=== PATIENT | male | born 1985 | race Caucasian/White ===

== ENCOUNTER 2023-12-13 07:31 | Day surgery (SDC) | payer SELFPAY ==
[2023-12-13 07:39] VITALS: BP 146/93; PULSE 78; RESP 14; TEMP 36.7; O2SAT 98
--- NOTE | 2023-12-13 07:47 | W.ED.GENAD ---
Discharge Plan Disposition Patient Disposition: Admit to [facility] Discharge Details Clinical Impression: Immunization, tetanus-diphtheria, Laceration of forearm, left, complicated Attending Provider: Tre Ansari Primary Care Provider: Steff,[facility] ED Provider: Maxwell Guzman Discharge Data Discharge Date/Time-TO BE ENTERED AT DEPARTURE: 12/13/23 18:50 HPI General Date/Time Provider Initiated Documentation: 12/13/23 07:47. HPI Narrative: MDM This is a previously healthy normothermic and not tachycardic [id number] 38-year-old male with nondominant left forearm with exposed muscle and tendon neurovascularly intact and no concerns for traumatic arthropathy so I do not feel that the patient requires CT scan. No pain or proportion to suggest necrotizing soft tissue infection. Will update tetanus status and consult orthopedics given exposed tendon and muscle belly. Will provide 2 g cefazolin, ketorolac and acetaminophen. Patient had some tea earlier this morning but has otherwise been n.p.o. since midnight. 8:03 AM I spoke with Dr. Ansari from the orthopedic team who graciously agreed to take the patient to the operating room for washout and primary closure. Chronic conditions affecting the care of the patient: N/A History obtained from an outside historian: N/A External record review: N/A Medications: Ketorolac cefazolin acetaminophen Social determinants of health affecting disposition: N/A Management discussed with: Orthopedics Treatment/interventions considered: CT left upper extremity but deferred Response to therapies provided: N/A HPI This is a [id number] 38-year-old male arrived to the emergency department via private vehicle in the setting of a left forearm laceration he sustained just prior to arrival. Patient was reportedly working with a [place] saw. The saw inadvertently fell off the table and he sustained 2 lacerations to his left forearm with a soft. His lacerations were initially bleeding but stopped prior to his arrival. He is not anticoagulated. He is not having any limitations of motion in his left hand. He denies any other injuries. Exam General: Well-appearing in no acute distress speaking in complete sentences. Head: Normocephalic, atraumatic. Eye: Extraocular eye movements intact. No conjunctival injection. No scleral icterus. Ear, nose, mouth, throat: Grossly normal inspection. Normal voice, handling secretions normally. Neck: Trachea midline. Cardiovascular: Well-perfused distal extremities. Respiratory: Nonlabored respiration. Gastrointestinal: Nondistended abdomen. Musculoskeletal: On the patient's left forearm there are 2 gaping approximately 15 cm lacerations. The lacerations are hemostatic. The inferior laceration has exposed muscle with tendon. Patient has good range of motion in his left elbow. He is able to fully pronate and supinate. He is neurovascularly intact in his left upper extremity at the hand. He has a 2+ left radial pulse. Cap refill less than 2 seconds in the left fingertips. Sensation motor function intact in left hand across the radial, median, and ulnar nerve distributions. Skin: Normal for age and race, grossly normal temperature and turgor. No acute rash. Neurologic: Alert and appropriate, no apparent acute deficits. Related Data Home Medications Medication Instructions Recorded Confirmed acetaminophen 500 mg tablet 500 mg PO Q6H PRN PRN pain #40 tabs 12/13/23 cephalexin 500 mg capsule 500 mg PO TID #6 caps 12/13/23 hydrocodone 5 mg-acetaminophen 325 1 tab PO Q6H PRN pain #5 tabs 12/13/23 mg tablet ibuprofen 600 mg tablet 600 mg PO TID PRN pain #90 tabs 12/13/23 Previous Rx's Medication Instructions Recorded acetaminophen 500 mg tablet 500 mg PO Q6H PRN PRN pain #40 tabs 12/13/23 cephalexin 500 mg capsule 500 mg PO TID #6 caps 12/13/23 hydrocodone 5 mg-acetaminophen 325 1 tab PO Q6H PRN pain #5 tabs 12/13/23 mg tablet ibuprofen 600 mg tablet 600 mg PO TID PRN pain #90 tabs 12/13/23 Allergies Allergy/AdvReac Type Severity Reaction Status Date / Time No Known Allergies Allergy Unverified 12/13/23 08:44 General Stated Complaint: Laceration KENNETH: 3 Course Vital Signs Vital signs: Vital Signs Temperature 36.7 C 12/13/23 07:39 Pulse 78 12/13/23 07:39 Respiratory Rate 14 12/13/23 07:39 Blood Pressure 146/93 H 12/13/23 07:39 Pulse Oximetry 98 12/13/23 07:39 Temperature 36.7 C 12/13/23 07:39 Temperature Source Oral 12/13/23 07:39 Pulse 78 12/13/23 07:39 Respiratory Rate 14 12/13/23 07:39 Blood Pressure 146/93 H 12/13/23 07:39 Blood Pressure Position Sitting 12/13/23 07:39 Pulse Oximetry 98 12/13/23 07:39 Oxygen Delivery Method Room Air 12/13/23 07:39 Oxygen Flow Rate 0 12/13/23 07:39 Medical Decision Making Quality:SDOH Health Related Social Needs: No Data to Display PFSH All Active Problems Laceration of forearm, left, complicated (Acute) Immunization, tetanus-diphtheria (Acute) Social History Smoking/Tobacco Use Status: Current every day Tobacco Type: cigarettes Smoking risk assessment performed?: Yes Alcohol Intake: current Alcohol Intake frequency: holidays/special occasions only Drug use: Never Substance use type: does not use Housing: house Do you feel safe at home: Yes Do you feel safe in your relationship?: Yes
--- NOTE | 2023-12-13 08:07 | W.ORTHOCONSU ---
Date of service: 12/13/23 Time of Service: 08:07 History of Present Illness Narrative: Gabirel is a 38-year-old male who was working with a chop saw this morning. The stand which the tops always on was somewhat unstable and the soft fell on the him. He deflected the cell with his left forearm suffering 2 lacerations. I was called by Dr. Guzman for an evaluation given the deep and complex nature of these lacerations. Gabriel reports pain with wrist motion but no limitations with motion. He denies numbness or tingling. He is right-hand dominant. He denies any previous issues with his left arm. He denies any significant medical issues. Consults Consult date: 12/13/23 Requesting physician: Maxwell Guzman Consult Reason Left Forearm laceration Assessment and Plan Assessment and plan (1) Laceration of forearm, left, complicated: Status: Acute Assessment and plan: Gabriel is a 38-year-old male who suffered an injury by chops on the left forearm. This is a complex and deep laceration involving muscle and fascia. Given the size of the lacerations, both over 10 cm, and the involvement of muscle and fascia, I recommend proceeding with operative irrigation and debridement with closure. It does not seem to involve any vital structures. The location of the lacerations would involve some muscle but there is no significant tendon in this region and his examination is benign for this. I would recommend proceeding with irrigation debridement, I would not close the fascia. I would inspect the wound more closely under anesthesia and then closed primarily. He would be able to go home afterwards. Review of Systems All systems reviewed & are unremarkable except as noted in HPI and below PFSH All Active Problems Laceration of forearm, left, complicated (Acute) Immunization, tetanus-diphtheria (Acute) Social History Smoking/Tobacco Use Status: Current every day Tobacco Type: cigarettes Smoking risk assessment performed?: Yes Alcohol Intake: current Alcohol Intake frequency: holidays/special occasions only Drug use: Never Substance use type: does not use Housing: house Do you feel safe at home: Yes Do you feel safe in your relationship?: Yes Exam Const General: cooperative, healthy appearing, comfortable and no acute distress Nutritional Appearance: average body habitus Orientation: alert, awake and oriented x3 Resp Auscultation: clear to auscultation bilaterally Cardio Rate: regular rate Rhythm: regular rhythm Extrem Other: Evaluation of the left arm shows 2 oblique lacerations. The more ventral laceration is obliquely oriented within the skin. The skin edge does seem slightly blackened and undermined. This laceration appears to go down to fascia but does not violate the fascia. It is roughly directly over the mobile wad. The more distal laceration is deeper involves muscle fascia. This appears to be the muscle belly of extensor carpi radialis longus and brevis. Potentially there could be some involvement of EDC. He is able to demonstrate active wrist extension and active extension of all 5 digits. This causes pain. He reports sensation intact to light touch over the dorsum of the wrist and hand and is well as the median and ulnar nerve. There is no gross debris in the wound. There is no bone involvement. Results Last Vital Signs Temp 36.7 C 12/13/23 07:39 Pulse 78 12/13/23 07:39 Resp 14 12/13/23 07:39 BP 146/93 H 12/13/23 07:39 Pulse Ox 98 12/13/23 07:39
[2023-12-13] MEDS: ceFAZolin 2 GM/50 ML BAG IVPB (08:23)
[2023-12-13] MEDS: ACETAMINOPHEN 1,000 MG/100 ML BTL 400 MG IVPB (08:23)
[2023-12-13] MEDS: Ketorolac 15 MG/ML VIAL IVP (08:24)
[2023-12-13] MEDS: Normal Saline 500 ML IV (08:25)
--- NOTE | 2023-12-13 10:02 | W.ANESPRE ---
General Info Date of Service Date Performed: 12/13/23 Height: 5 ft 7 in Weight: 90.718 kg Body Mass Index (BMI): 31.3 Surgical Procedure: Operation Date: 12/13/23 08:30 Proposed Procedure Side Surgeon p Laceration Repair Right Tre Ansari MD Actual Procedure Side Surgeon p Forearm Laceration Repair Left Tre Ansari MD Pre-Op Diagnosis Post-Op Diagnosis LEFT FOREARM LACERATION Meds Allergies and Home Medications Allergies Allergy/AdvReac Type Severity Reaction Status Date / Time No Known Allergies Allergy Unverified 12/13/23 08:44 Home Medication Medication Instructions Recorded Unknown [No Known Home Meds] 12/13/23 [facility] Active Problems Active Problems: Problem Status Onset Code Laceration of forearm, left, complicated S51.812A Immunization, tetanus-diphtheria Z23 Tobacco Smoking/Tobacco Use Status: Current every day Tobacco Type: cigarettes Alcohol Alcohol Intake: current Alcohol intake frequency: holidays/special occasions only Substance Use Substance use: Never Substance use type: does not use Vital Signs and Lab Results Vital Signs Most Recent Vital Signs in EMR: Most Recent Vital Signs Temp Pulse Resp BP Pulse Ox 36.7 C 78 14 146/93 H 98 12/13/23 07:39 12/13/23 07:39 12/13/23 07:39 12/13/23 07:39 12/13/23 07:39 Lab Results Blood Type / Crossmatch: No Data to Display Complete Blood Count: No Data to Display Complete Metabolic Panel: No Data to Display Liver Function Panel: No Data to Display Coagulation Panel: No Data to Display Cardiac Panel: No Data to Display Arterial Blood Gas: No Data to Display Venous Blood Gas: No Data to Display Pancreas Panel: No Data to Display Thyroid Panel: No Data to Display Infectious Disease: No Data to Display Blood Cultures: No Data to Display Toxicology Panel: No Data to Display Anesthesia Assessment and Plan Anesthesia History Personal History: No History of Anesthesia Complications Family History: No Family History of Anesthesia Complications Exercise Tolerance Exercise Tolerance: Metabolic Equivalents>4 Pertinent Negatives Pertinent Negatives: No Symptoms of GERD, No Major Cardiovascular Symptoms or Complaints and No Major Pulmonary Symptoms or Complaints Cardiac & Pulmonary Exam Cardiac Exam: Normal S1/S2 Heart Sounds Pulmonary Exam: Clear Bilateral Breath Sounds Implantable Cardiac Device Does patient have a Pacemaker or an ICD?: No Airway Exam Known Difficult Airway: No Mallampati Class: 4 Mouth Opening: Narrow (< 3cm) Thyromental Distance: Greater than 3 cm Facial Hair: Full Urena Neck Range of Motion: Full ROM Neck Circumference: Thick Teeth Condition: Generalized Poor Dentition ASA Classification ASA Score: ASA 2 Emergency Case?: Yes NPO Status NPO Status: NPO Clears >2 hours, Solids >8 hours Anesthesia Plan Resuscitation Status: Full Code Anesthesia Technique: General Anesthesia Airway Planned: Natural Airway Monitors Used: Standard Monitors
[2023-12-13 10:04] VITALS: BMI 31.3
--- NOTE | 2023-12-13 10:12 | W.PM.DS.N ---
Date of service: 12/13/23 Time of Service: 11:26 DS: Diagnosis Discharge Diagnosis (1) Laceration of forearm, left, complicated: Status: Acute Discharge Plan Disposition Patient Disposition: Home Discharge Details Reason For Visit: Arm laceration/saw Attending Provider: Tre Ansari Primary Care Provider: ,[facility] Meds and New Rx's Prescriptions: New hydrocodone-acetaminophen 5-325 mg tablet 1 tab PO Q6H PRN (Reason: pain) Qty: 5 0RF acetaminophen 500 mg tablet 500 mg PO Q6H PRN PRN (Reason: pain) Qty: 40 3RF ibuprofen 600 mg tablet 600 mg PO TID PRN (Reason: pain) Qty: 90 3RF Discharge Instructions Additional Instructions: Discharge Instructions Activity: You should keep the hand elevated as much as possible for the first few days. You may perform light activities with the splint in place, focusing mostly on movement of the fingers. After 3 days when the splint is removed you may slowly increase her activities as tolerated, focusing mostly on motion. You should avoid painful activities and repetitive lifting or grasping. Dressing/Cast: Your splint should stay in place for the first 3 days. During this time, do NOT get it wet. You may loosen the LAMONT wrap if you feel it is too tight and then rewrap more loosely. After 3 days, you may remove the splint. The dressing over the arm should also be changed. This should be covered with some gauze and a gauze wrap with an Lamont wrap as needed. You do not need to further splint or brace the wrist after 3 days, however, you may choose to do so which is okay. Medications: - You should take Tylenol and Ibuprofen for baseline pain control. - You have Hydrocodone for breakthrough pain. - You may apply ice over the thumb. Follow-up: 10 days Referrals: Tre Ansari MD [ [facility] STAFF PHYSICIAN] - Equipment/Supplies: Splint Activity:: Elevate Remove Dressings/Wound Care:: 72 hours Shower/Bathe:: 72 hours Diet:: As Tolerated Discharge Orders Discharge Orders: Discharge Order (Routine); Ordered 12/13/23 Ordered By: Tre Ansari DS: Summary Time Spent with Patient providing and/or coordinating discharge services: Less than 30 minutes Status at Discharge Functional status at discharge: independent ambulation Overall status at discharge: patient is progressing back to baseline Mental Status: mental status grossly normal Speech and Movement: speech and movement normal Mood: congruent mood Affect: normal affect Quality:SDOH Health Related Social Needs: No Data to Display Exam Psych Mental Status: mental status grossly normal Speech and Movement: speech and movement normal Mood: congruent mood Affect: normal affect DS: Data Vitals/I&O Vitals and I&O: Vital Signs Temperature 36.7 C 12/13/23 07:39 Temperature Source Oral 12/13/23 07:39 Pulse 78 12/13/23 07:39 Respiratory Rate 14 12/13/23 07:39 Respiratory Effort Normal, Non-Labored 12/13/23 08:39 Blood Pressure 146/93 H 12/13/23 07:39 Blood Pressure Position Sitting 12/13/23 07:39 Pulse Oximetry 98 12/13/23 07:39 Oxygen Delivery Method Room Air 12/13/23 07:39 Oxygen Flow Rate 0 12/13/23 07:39 Intake & Output 12/12/23 12/12/23 12/13/23 11:59 23:59 11:59 Intake Total 660 / 660 Balance 660 / 660 Weight 90.718 kg Intake: IV 660 / 660 PFSH All Active Problems Laceration of forearm, left, complicated (Acute) Immunization, tetanus-diphtheria (Acute) Social History Smoking/Tobacco Use Status: Current every day Tobacco Type: cigarettes Smoking risk assessment performed?: Yes Alcohol Intake: current Alcohol Intake frequency: holidays/special occasions only Drug use: Never Substance use type: does not use Housing: house Do you feel safe at home: Yes Do you feel safe in your relationship?: Yes Time Spent with Patient Time Spent with Patient: <45 minutes Time was spent: obtaining and/or reviewing separately otained hiistory, ordering medications,tests, procedures, counseling the patient and care coordination
[2023-12-13] MEDS: Lactated Ringers 1,000 ML 125 ML IV (10:28)
[2023-12-13] MEDS: ceFAZolin 1 GM/50 ML BAG 100 GM (10:29)
[2023-12-13] MEDS: Bupivacaine 0.25% Pres-Free W/EPI 30 ML VIAL (10:41)
[2023-12-13] MEDS: Bacitracin 30 GM TUBE (10:55)
--- NOTE | 2023-12-13 11:29 | ROE_ITS ---
Date of service: 12/13/23 Time of Service: 10:45 Operative Note Operative Note DATE OF PROCEDURE: 12/13/23 PRE-OP DIAGNOSIS: Complex, deep lacerations about left forearm POST-OP DIAGNOSIS: same PROCEDURE: Irrigation and debridement of complex left forearm lacerations with closure SURGEON: Tre Ansari ANESTHESIA TYPE: General:No Airway Refer to Anesthesia Record ESTIMATED BLOOD LOSS: 10 PATHOLOGY: none sent TOURNIQUET TIME: 0 COMPLICATIONS: None Patient was transported to: floor Patient's condition: stable Indications: Gabriel is a 38-year-old [id number] male who was working with a chop saw when it fell hitting his left arm. He had multiple lacerations, 2 quite deep and complex. Given the complexity and the nature of the lacerations, I recommended proceeding to the operating room for irrigation debridement and closure. I discussed the risk of the procedure to include bleeding, infection, pain, stiffness, skin healing difficulties, skin necrosis, need for repeat procedures, damage to nerves and vessels, damage to muscle and tendons. Despite these risk, he elected to proceed. Findings: There are multiple smaller lacerations which were superficial in nature. There is 2 primary lacerations, 1 with very jagged edges extending down to the fascia measuring approximately 8 cm in length. The second, more distal, laceration is approximately 14 cm in length and involve the fascia of the extensor compartment of the forearm. Aggressive debridement was performed along with irrigation and the 2 primary wounds were closed including the fascia of the extensor compartment. Procedure Description: Gabriel was greeted in the preoperative holding area. His identity was confirmed the correct site was identified and marked. He was seen previously in the emergency department. He was brought into the operating room placed in the supine position on the hospital stretcher. All bony prominences were well- padded. The left arm was placed onto a hand table. Prophylactic biotics in the form of cefazolin were given. Only 1 g was given here given that he had 2 g approximately 2 and half to 3 hours ago in the emergency department. A general, uninstrumented airway, anesthetic was administered. The left arm was then prepped with Betadine and draped in a standard fashion. A timeout is performed for safe surgery. The subcutaneous and deep tissues surrounding the 2 wounds were then anesthetized with 0.25% bupivacaine with epinephrine. Then, the 2 primary wounds were inspected. The more proximal wound was approximate centimeters in length, obliquely in nature with a jagged piece of skin proximally. This extended down to the fascia but not occluding to the deeper structures. A few areas of necrotic, blackened, skin were removed sharply. The more distal incision, measuring approxi-14 cm in length, involve the fascia of the extensor compartment. The muscle itself had no significant loss. There is no tendon involvement. There is no appreciable nerve or vessel involvement. Any areas of devitalized tissue was removed sharply. The fascia was easily reapproximated and therefore I did go ahead and closed the extensor compartment. This was done without any significant tension using 0 Vicryl. Once extensor compartments close the wound was once again irrigated and inspected. It showed no other signs of gross contamination or devitalized tissue. The skin is subcutaneous layers were then reapproximated with #2-0 Vicryl to bring the skin edges and approximation of each other. The skin was closed with 4-0 nylon in interrupted fashion using both simple and horizontal mattress sutures. Some of the skin flaps were used to lay down on top of the subcutaneous tissue as a biologic dressing but did not have sutures placed given there is thinned and potentially devitalized nature. The wounds are fully reapproximated without any significant concerns without any significant tension on the skin. The arm was cleaned and the wounds were dressed with bacitracin ointment follow ed by Malina, 4 x 4 and Salvador. A resting volar forearm splint was applied to take some tension off the extensor musculature. He was awakened from anesthesia without notable complications. At the end the case all counts were correct. He was transferred to the medical surgical floor to be discharged later today.
[2023-12-13 11:42] VITALS: BP 111/78; PULSE 67; RESP 18; TEMP 35; O2SAT 95
--- NOTE | 2023-12-13 18:50 | W.ANESPOSTOP ---
Postoperative Evaluation Date, Time and Location Date Performed: 12/13/23 Time Performed: 11:30 Patient Location: Med/Surg Vital Signs Most Recent Imported Vital Signs: Most Recent Vital Signs Temp Pulse Resp BP Pulse Ox 35.0 C L 67 18 111/78 95 12/13/23 11:42 12/13/23 11:42 12/13/23 11:42 12/13/23 11:42 12/13/23 11:42 Pain Score Most Recent Pain Score: Most Recent Pain Score Pain Level 0 12/13/23 11:42 Assessment Mental Status: Awake (Alert & Oriented to Patient Baseline) Airway and Respiratory Function: Patent airway with normal (patient baseline) respiratory exam Cardiovascular Function: Hemodynamically Stable Hydration Status: Adequately Hydrated Nausea & Vomiting: No Nausea or Vomiting Pain: Pain is tolerable per patient Peripheral Nerve Block: Patient did not receive a nerve block
== END 2023-12-13 12:56 | disposition home or self-care (01) ==
LOC: ER 08:45 → SUR 10:24 → MS 11:41
PROVIDERS: Emergency Provider Emergency Medicine; Visit Provider Student in an Organized Health Care Education/Training Program
PROC: (CPT 20103; principal; 2023-12-13 08:30)
DX: S51.812A Laceration without foreign body of left forearm, initial encounter (principal); W27.0XXA Contact with workbench tool, initial encounter
CPT/HCPCS: 20103; 90715; G0378; J0131; J0690; J1100; J1885; J2001; J2250; J2405; J2704; J3010